=== PATIENT | male | born 1955 | race Caucasian/White ===

== ENCOUNTER 2017-02-18 20:12 | Emergency (ER) | payer OTHER ==
--- NOTE | 2017-02-18 21:10 | DIAGNOSTIC IMAGING REPORT ---
PROCEDURE: XR CHEST 1 VIEW INDICATION: CHEST PAIN TECHNIQUE: Portable AP view 08:31 p.m. COMPARISON: Chest x-ray 10/29/2009. FINDINGS: Lungs are clear. Heart and mediastinum are normal. Thorax is normal. No significant interval change. IMPRESSION: 1. Negative chest.
--- NOTE | 2017-02-19 01:18 | ED CLINICAL REPORT ---
Clinical Report - Physicians/Mid Levels [facility] [address] [place] [address] 02/18/2017 20:12 [id number] Time Seen: 21:01. Arrived- By private vehicle. Historian- patient. HISTORY OF PRESENT ILLNESS Chief Complaint: CHEST PAIN. When seen in the E.D., it was gone. It is described as sharp and it is described as located in the central chest area. No radiation. This started today and is now gone. It was abrupt in onset and has been intermittent. Onset during emotional upset. No nausea, vomiting or difficulty breathing. REVIEW OF SYSTEMS No chills, fever, sweats, calf pain or palpitations. No abdominal pain, constipation, diarrhea, nausea or vomiting. No urinary problems. He has had nasal congestion and sinus pain. He has had a moderate cough productive of sputum (recently - better now). He says that he had a stress test several years ago. All systems otherwise negative, except as recorded above. PAST HISTORY PCP - Richard. Problems: Hypertension. Diabetes Mellitus. Additional Surgeries: Urvashi tumor neck. Finger. Ganglion cyst. Knee Surgery. Tonsillectomy. Vasectomy. Medications: Trulicity Subcutaneous. Chlorthalidone Oral. Ambien Oral. Xigdou. ASA Oral 81mg, daily. Losartan Potassium Oral. Carvedilol Phosphate ER Oral. Allergies: No Known Drug Allergy. SOCIAL HISTORY Former smoker, end date 1986. Occasional alcohol use. No drug use. FAMILY HISTORY Diabetes in first-degree relative (mother and father); heart disease in first-degree relative (mother, father and sibling); cancer in first-degree relative (sibling). ADDITIONAL NOTES The nursing notes have been reviewed. PHYSICAL EXAM Vital Signs: 02/18/2017 20:14 BP: 143/84. HR: 83. RR: 16. O2 saturation: 95%. Temp: 98.1 F. Pain level now: 0/10. Have been reviewed. Appearance: Alert. Eyes: Pupils equal, round and reactive to light. ENT: Pharynx normal. Neck: Normal inspection. Neck supple. CVS: Normal heart rate and rhythm. Heart sounds normal. Respiratory: No respiratory distress. Breath sounds normal. Abdomen: Soft and nontender. Bowel sounds normal. No organomegaly. No mass. Back: Normal external inspection. Skin: Skin warm and dry. Normal skin color. No rash. Normal skin turgor. Extremities: Extremities exhibit normal ROM. No calf tenderness. No lower extremity edema. LABS, X-RAYS, AND EKG EKG: No acute process. Normal EKG. Rate: 79. EKG unchanged when compared with prior EKG. (29 Oct 2009). The study has been independently viewed by me. Chest X-ray: No acute disease. The X-rays were interpreted by the radiologist and contemporaneously by me. Laboratory Tests: CBC w Diff: (RENATA: 02/18/2017 20:30) ( MsgRcvd 02/18/2017 20:59) Final results Test Result Flag Units (Reference) WHITE BLOOD COUNT 7.6 K/uL (4.5-11.5) RED BLOOD COUNT 5.48 M/uL (4.50-5.90) HEMOGLOBIN 16.3 gm/dL (13.5-17.5) HEMATOCRIT 47.3 % (41.0-53.0) MEAN CELL VOLUME 86 fL (80-100) MEAN CORPUSCULAR HGB 30 pg (26-34) MEAN CORPUSCULAR HGB CONC 35 g/dL (31-37) RED CELL DISTRIBUTION WIDTH 13.9 % (11.6-14.8) PLATELET COUNT 310 K/uL (150-400) NEUTROPHIL % 55.1 % (50-75) LYMPH % 30.6 % (25-40) MONO % 10.4 % (3-14) EOSINOPHIL % 2.9 % (0-4) BASOPHIL % 1.0 % (0-2) [id number]: (RENATA: 02/18/2017 20:30) ( MsgRcvd 02/18/2017 22:01) Final results Test Result Flag Units (Reference) D-DIMER QUANTITATIVE < 0.27 L ug/mLFEU (0.27-0.52) The primary value of this quantitative assay relates toits negative predictive value (i.e. exclusion) of pulmonaryembolism/deep vein thrombosis/DIC.Elevated levels of d-dimer may also occur with:, age, cancer, inflammation, liver disease,post-op, infection, hematoma, coronary disease, peripheralarteriopathy, bleeding disorders and thrombolytic treatment.Results should be correlated with other clinical andradiological data.Testing Methodology: Latex Immunoassay PT with INR: (RENATA: 02/18/2017 20:30) ( MsgRcvd 02/18/2017 21:25) Final results Test Result Flag Units (Reference) INR 0.9 (0.8-1.2) Low Intensity Therapy: INR 1.5-2.0 PT range 18.5-23.1Mod.Intensity Therapy: INR 2.0-3.0 PT range 23.1-31.5High Intensity Therapy: INR 2.5-3.5 PT range 27.4-35.5High Intensity Therapy 2: INR 3.0-4.0 PT range 31.5-39.3 APTT 32 SECONDS (24-34) CHEM 13 PANEL: (RENATA: 02/18/2017 20:30) ( MsgRcvd 02/18/2017 21:08) Final results Test Result Flag Units (Reference) GLUCOSE 176 H mg/dL (70-110) BUN 13 mg/dL (7-18) CREATININE 1.0 mg/dL (0.6-1.3) Estimated GFR >60 mL/min Estimated GFR- >60 mL/min Note: Persistent reduction over 3 months in eGFR<60 mL/min/1.73 m2 defines CKD. Patients with eGFR values>=60 mL/min/1.73 m2 may also have CKD if evidence ofpersistent proteinuria. Additional information may be foundat [email or web address].org. SODIUM 137 mmol/L (136-145) POTASSIUM 2.8 *L mmol/L (3.5-5.1) CRITICAL RESULTS CALLEDCalled to Eugenio NGUYEN 02/18/17 2107Were 2 patient identifiers used? YWas the result read back? Y CHLORIDE 95 L mmol/L (98-107) CARBON DIOXIDE 29 mmol/L (21-32) CALCIUM 9.4 mg/dL (8.5-10.1) TOTAL PROTEIN 7.7 g/dL (6.4-8.2) ALBUMIN 4.0 g/dL (3.3-5.0) BILIRUBIN, TOTAL 0.7 mg/dL (0.0-1.0) ALKALINE PHOSPHATASE 75 U/L (46-116) AST (SGOT) 18 U/L (15-37) ALT (SGPT) 39 U/L (12-78) MAGNESIUM 1.9 mg/dL (1.8-2.4) CPK 205 U/L (24-260) TROPONIN I <0.05 L ng/mL (0.00-1.5) TROPONIN REFERENCE RANGE:<0.1 NEGATIVE0.1-1.5 INDETERMINANT>1.5 POSITIVE . PROGRESS AND PROCEDURES Course of Care: Patient is stable. Patient/family counseled. Old medical records ordered. Disposition: Discharged. Condition: stable. CLINICAL IMPRESSION Atypical chest pain Hypokalemia Possible gastroesophageal reflux disease with esophagitis. Possible chest pain of GI origin (due to esophageal reflux, hiatal hernia and esophagitis). INSTRUCTIONS No strenuous activity. Rest. Avoid alcohol and NSAIDS. Examples of NSAIDS include aspirin, ibuprofen (Advil) and naproxen (Aleve). Avoid salty and spicy foods. (talk with her doctor today about arranging another cardiac stress test, echocardiogram and consideration of endoscopy as discussed.). Warnings: Further evaluation is necessary. GENERAL WARNINGS: Return or contact your physician immediately if your condition worsens or changes unexpectedly, if not improving as expected, or if other problems arise. Your Current Medications: STOP TAKING THE FOLLOWING MEDICATIONS: Chlorthalidone Oral. CONTINUE TAKING THE FOLLOWING MEDICATIONS: Ambien Oral. ASA Oral : 81mg daily. Carvedilol Phosphate ER Oral. Losartan Potassium Oral. Trulicity Subcutaneous. Xigdou*. Prescription Medications: Omeprazole 20 mg capsules: Take 1 orally once daily. Dispense fifteen (15). No refills. Potassium Chloride 10 mEq: Take 1 orally every 12 hours. Dispense thirty (30). No refills. Follow-up: Follow up with a soldering machine feeder- as recommended by your primary care physician. Understanding of the discharge instructions verbalized by patient and family. Follow-up with: [facility], , [address] [place] [address], [id number], [place], [address] Follow up today. Call for an appointment. (Electronically signed by Aristides Campbell MD 02/22/2017 11:06)
--- NOTE | 2017-02-19 01:18 | ED CLINICAL REPORT ---
Clinical Report - Physicians/Mid Levels [facility] [address] [place] [address] 02/18/2017 20:12 [id number] Time Seen: 21:01. Arrived- By private vehicle. Historian- patient. HISTORY OF PRESENT ILLNESS Chief Complaint: CHEST PAIN. When seen in the E.D., it was gone. It is described as sharp and it is described as located in the central chest area. No radiation. This started today and is now gone. It was abrupt in onset and has been intermittent. Onset during emotional upset. No nausea, vomiting or difficulty breathing. REVIEW OF SYSTEMS No chills, fever, sweats, calf pain or palpitations. No abdominal pain, constipation, diarrhea, nausea or vomiting. No urinary problems. He has had nasal congestion and sinus pain. He has had a moderate cough productive of sputum (recently - better now). He says that he had a stress test several years ago. All systems otherwise negative, except as recorded above. PAST HISTORY PCP - Richard. Problems: Hypertension. Diabetes Mellitus. Additional Surgeries: Urvashi tumor neck. Finger. Ganglion cyst. Knee Surgery. Tonsillectomy. Vasectomy. Medications: Trulicity Subcutaneous. Chlorthalidone Oral. Ambien Oral. Xigdou. ASA Oral 81mg, daily. Losartan Potassium Oral. Carvedilol Phosphate ER Oral. Allergies: No Known Drug Allergy. SOCIAL HISTORY Former smoker, end date 1986. Occasional alcohol use. No drug use. FAMILY HISTORY Diabetes in first-degree relative (mother and father); heart disease in first-degree relative (mother, father and sibling); cancer in first-degree relative (sibling). ADDITIONAL NOTES The nursing notes have been reviewed. PHYSICAL EXAM Vital Signs: 02/18/2017 20:14 BP: 143/84. HR: 83. RR: 16. O2 saturation: 95%. Temp: 98.1 F. Pain level now: 0/10. Have been reviewed. Appearance: Alert. Eyes: Pupils equal, round and reactive to light. ENT: Pharynx normal. Neck: Normal inspection. Neck supple. CVS: Normal heart rate and rhythm. Heart sounds normal. Respiratory: No respiratory distress. Breath sounds normal. Abdomen: Soft and nontender. Bowel sounds normal. No organomegaly. No mass. Back: Normal external inspection. Skin: Skin warm and dry. Normal skin color. No rash. Normal skin turgor. Extremities: Extremities exhibit normal ROM. No calf tenderness. No lower extremity edema. LABS, X-RAYS, AND EKG EKG: No acute process. Normal EKG. Rate: 79. EKG unchanged when compared with prior EKG. (29 Oct 2009). The study has been independently viewed by me. Chest X-ray: No acute disease. The X-rays were interpreted by the radiologist and contemporaneously by me. Laboratory Tests: CBC w Diff: (RENATA: 02/18/2017 20:30) ( MsgRcvd 02/18/2017 20:59) Final results Test Result Flag Units (Reference) WHITE BLOOD COUNT 7.6 K/uL (4.5-11.5) RED BLOOD COUNT 5.48 M/uL (4.50-5.90) HEMOGLOBIN 16.3 gm/dL (13.5-17.5) HEMATOCRIT 47.3 % (41.0-53.0) MEAN CELL VOLUME 86 fL (80-100) MEAN CORPUSCULAR HGB 30 pg (26-34) MEAN CORPUSCULAR HGB CONC 35 g/dL (31-37) RED CELL DISTRIBUTION WIDTH 13.9 % (11.6-14.8) PLATELET COUNT 310 K/uL (150-400) NEUTROPHIL % 55.1 % (50-75) LYMPH % 30.6 % (25-40) MONO % 10.4 % (3-14) EOSINOPHIL % 2.9 % (0-4) BASOPHIL % 1.0 % (0-2) [id number]: (RENATA: 02/18/2017 20:30) ( MsgRcvd 02/18/2017 22:01) Final results Test Result Flag Units (Reference) D-DIMER QUANTITATIVE < 0.27 L ug/mLFEU (0.27-0.52) The primary value of this quantitative assay relates toits negative predictive value (i.e. exclusion) of pulmonaryembolism/deep vein thrombosis/DIC.Elevated levels of d-dimer may also occur with:, age, cancer, inflammation, liver disease,post-op, infection, hematoma, coronary disease, peripheralarteriopathy, bleeding disorders and thrombolytic treatment.Results should be correlated with other clinical andradiological data.Testing Methodology: Latex Immunoassay PT with INR: (RENATA: 02/18/2017 20:30) ( MsgRcvd 02/18/2017 21:25) Final results Test Result Flag Units (Reference) INR 0.9 (0.8-1.2) Low Intensity Therapy: INR 1.5-2.0 PT range 18.5-23.1Mod.Intensity Therapy: INR 2.0-3.0 PT range 23.1-31.5High Intensity Therapy: INR 2.5-3.5 PT range 27.4-35.5High Intensity Therapy 2: INR 3.0-4.0 PT range 31.5-39.3 APTT 32 SECONDS (24-34) CHEM 13 PANEL: (RENATA: 02/18/2017 20:30) ( MsgRcvd 02/18/2017 21:08) Final results Test Result Flag Units (Reference) GLUCOSE 176 H mg/dL (70-110) BUN 13 mg/dL (7-18) CREATININE 1.0 mg/dL (0.6-1.3) Estimated GFR >60 mL/min Estimated GFR- >60 mL/min Note: Persistent reduction over 3 months in eGFR<60 mL/min/1.73 m2 defines CKD. Patients with eGFR values>=60 mL/min/1.73 m2 may also have CKD if evidence ofpersistent proteinuria. Additional information may be foundat www.kidney.org. SODIUM 137 mmol/L (136-145) POTASSIUM 2.8 *L mmol/L (3.5-5.1) CRITICAL RESULTS CALLEDCalled to Eugenio NGUYEN 02/18/17 2107Were 2 patient identifiers used? YWas the result read back? Y CHLORIDE 95 L mmol/L (98-107) CARBON DIOXIDE 29 mmol/L (21-32) CALCIUM 9.4 mg/dL (8.5-10.1) TOTAL PROTEIN 7.7 g/dL (6.4-8.2) ALBUMIN 4.0 g/dL (3.3-5.0) BILIRUBIN, TOTAL 0.7 mg/dL (0.0-1.0) ALKALINE PHOSPHATASE 75 U/L (46-116) AST (SGOT) 18 U/L (15-37) ALT (SGPT) 39 U/L (12-78) MAGNESIUM 1.9 mg/dL (1.8-2.4) CPK 205 U/L (24-260) TROPONIN I <0.05 L ng/mL (0.00-1.5) TROPONIN REFERENCE RANGE:<0.1 NEGATIVE0.1-1.5 INDETERMINANT>1.5 POSITIVE . PROGRESS AND PROCEDURES Course of Care: Patient is stable. Patient/family counseled. Old medical records ordered. Disposition: Discharged. Condition: stable. CLINICAL IMPRESSION Atypical chest pain Hypokalemia Possible gastroesophageal reflux disease with esophagitis. Possible chest pain of GI origin (due to esophageal reflux, hiatal hernia and esophagitis). INSTRUCTIONS No strenuous activity. Rest. Avoid alcohol and NSAIDS. Examples of NSAIDS include aspirin, ibuprofen (Advil) and naproxen (Aleve). Avoid salty and spicy foods. (talk with her doctor today about arranging another cardiac stress test, echocardiogram and consideration of endoscopy as discussed.). Warnings: Further evaluation is necessary. GENERAL WARNINGS: Return or contact your physician immediately if your condition worsens or changes unexpectedly, if not improving as expected, or if other problems arise. Your Current Medications: STOP TAKING THE FOLLOWING MEDICATIONS: Chlorthalidone Oral. CONTINUE TAKING THE FOLLOWING MEDICATIONS: Ambien Oral. ASA Oral : 81mg daily. Carvedilol Phosphate ER Oral. Losartan Potassium Oral. Trulicity Subcutaneous. Xigdou*. Prescription Medications: Omeprazole 20 mg capsules: Take 1 orally once daily. Dispense fifteen (15). No refills. Potassium Chloride 10 mEq: Take 1 orally every 12 hours. Dispense thirty (30). No refills. Follow-up: Follow up with a cell manager- as recommended by your primary care physician. Understanding of the discharge instructions verbalized by patient and family. Follow-up with: [facility], , [address] [place] [address], [id number], [place], [address] Follow up today. Call for an appointment. (Electronically signed by Arsitides Campbell MD 02/22/2017 11:06)
--- NOTE | 2017-02-19 01:19 | ED NURSING NOTES ---
Clinical Report - Nurses [facility] [address] [place] [address] 02/18/2017 20:12 [id number] Triage time 20:14. Acuity: LEVEL 2. Chief Complaint: CHEST PAIN. Alert. No acute distress. --20:22 Miladis Ng R.N. 20:14 02/18/17. BP: 143/84. HR: 83. RR: 16. O2 saturation: 95% on room air. Temp: 98.1 F (oral). Pain level now: 0/10. --20:22 Miladis Ng R.N. Weight: 100.6 kg stated. Height/Length: 70.5 inches Per Patient. BMI: 31.4. --20:21 Miladis Ng R.N. Medications Carvedilol Phosphate ER Oral. --20:16 Miladis Ng R.N. Losartan Potassium Oral. --20:17 Miladis Ng R.N. ASA Oral 81mg, daily. --20:18 Miladis Ng R.N. Allergies No Known Drug Allergy. --20:18 Miladis Ng R.N. History Arrived by private vehicle. Historian: patient. Primary physician (Dejah). This started today. Onset. (at about 1300). No difficulty breathing, nausea or cough. PAST MEDICAL HX: Immunizations: up-to-date. SOCIAL HX: Never smoker. Occasional alcohol use. No drug use. --20:22 Miladis Ng R.N. PROBLEMS: Hypertension. Diabetes Mellitus. --20:19 Miladis Ng R.N. ADDITIONAL SURGERIES: Finger. Knee Surgery. Tonsillectomy. Vasectomy. --20:19 Miladis Ng R.N. Urvashi tumor neck. Ganglion cyst. --20:20 Miladis Ng R.N. Interventions ID band on patient. To treatment room. --20:22 Miladis Ng R.N. PHYSICAL ASSESSMENT Ambulatory to room. Patient gowned. GENERAL / NEURO / PSYCH: Alert. Oriented X 4. Appears in no acute distress. HEENT: Mucous membranes are pink. RESPIRATORY: Respirations not labored. CVS: Capillary refill less than 2 seconds. SKIN: Skin is warm and dry. --20:22 Miladis Ng R.N. NURSING PROGRESS NOTES Head of bed elevated. Two patient identifiers checked. Call light placed in reach. Side rails up x 1. Bed placed in lowest position. Brakes of bed on. --20:22 Miladis Ng R.N. Patient ready for evaluation- chart flagged. --20:22 Miladis Ng R.N. 20:32 02/18/2017 Site #1 started via IV in the right antecubital space with an 20g angiocath, with aseptic technique and good blood return; one attempt. Blood drawn: rainbow set. Labeled in the presence of the patient and sent to the lab. Saline lock flushed with 10 mL saline. --20:32 Miladis Ng R.N. school bus monitor, pulse oximeter and NIBP monitor placed on patient; monitor alarms on. --20:32 Miladis Ng R.N. 20:42 02/18/2017 Aspirin PO 325 mg given. Allergies verified and confirmed 5 rights. --20:42 Sharyn Duke R.N. 21:08 02/18/17. Critical value relayed to ED by Fariba Krishnan. Critical value received by TORRI Coles. K: 2.8. Critical value read back. Verified lab result and patient ID. ED physician notifed of critical value. --21:08 Sharyn Duke R.N. 21:20 02/18/2017 Started 20 meq of KCL (Potassium Chloride) IVPB in bag #1 100 mL; at 50 mL/hr over 2 hour(s) via site #1 via IV pump. Allergies verified and confirmed 5 rights. IV patency established. IV site checked: no pain, redness, or swelling. IV flushed thoroughly pre- and post-medication administration. --21:20 Sharyn Duke R.N. 21:20 02/18/2017 KCL (Potassium Chloride ER) PO 20 meq given. Allergies verified and confirmed 5 rights. --21:20 Sharyn Duke R.N. 21:35 02/18/17. BP: 114/74. HR: 78. RR: 18. O2 saturation: 99% on nasal cannula at 2 liters/minute. --21:36 Sharyn Duke R.N. Care transferred and report received (from Sharyn RN). --22:10 Patrick Da Silva R.N. 23:27 02/18/2017 GI Cocktail (Magnesium-Aluminum) PO 60 mL given. Allergies verified and confirmed 5 rights. --23:27 Eugenio Eason 23:28 02/18/2017 PROTONIX 40MG (Pantoprazole Sodium) IVP 40 mg given over 4 minute(s) via site #1. Allergies verified and confirmed 5 rights. IV patency established. IV site checked: no pain, redness, or swelling. IV flushed thoroughly pre- and post-medication administration. IVP given by RN. --23:28 Eugenio Eason ( pt took his home medications after getting OK from ER ). --23:35 Eugenio Eason Checked patient name, birthdate and visit number: patient confirmed. Blood samples drawn from the right antecubital space with 23g butterfly by tech per protocol: green top; cardiac enzymes (2nd set). --23:47 Darryl Mejia 23:56 02/18/17. BP: 126/81. HR: 84. RR: 16. O2 saturation: 96%. Temp: deferred. Pain level now: 12/19. --23:58 Eugenio Eason Reassessment after medication administered. He is calm and resting quietly. Overall patient status is improved. --23:58 Eugenio Eason <<STRICKEN ENTRY-- ( Breathalizer performed POLLY .252). --23:58 Darryl Mejia --END STRIKE>> Charted On Wrong Patient --23:59 Darryl Mejia. DISPOSITION / DISCHARGE 01:50 02/19/2017 Site #1 removed upon discharge. Catheter intact. Bandaid applied. --01:50 TonyaB, R.N. Departure time: 01:50. Condition at departure: improved. No learning barriers present. Discharge instructions provided and reviewed with the patient. Reviewed warnings. Reviewed medication(s) side effects, precautions, dosing and course information. Prescription(s) given to the patient. Work note given. Follow up contact number. Patient verbalized understanding. Written instructions provided in Korean. No treatment instructions, referrals given to the patient, diet instructions, activity restrictions or stop smoking instructions. The patient was discharged by the physician. He was discharged home and accompanied by spouse. He left the Emergency Department ambulatory and via private vehicle. Spouse driving. FALL RISK ASSESSMENT: Fall risk assessment completed. No fall risk identified. --01:50 Eugenio Eason 01:48 02/19/17. BP: 125/82. HR: 74. RR: 18. O2 saturation: 98%. Temp: deferred. Pain level now: 0/10. --01:50 Eugenio Eason Locked/Released at 02/19/2017 1:50 by Eugenio Eason
--- NOTE | 2017-02-19 01:19 | ED ORDER SUMMARY ---
..... Patient: ALFREDA ESTES OrderSheet [facility] VisitID: [id number] [address] [place] [address] 61y, M Registration Date/Time: 02/18/2017 ORDER SHEET Weight: 100.6 kg (stated) Allergies: No Known Drug Allergy GENERAL ORDERS: Chest 1V Urgent (20:36 02/18/2017 RCollier R.N. per protocol) (Ack 20:40 AMcQuoid ER Tech1) (20:44 MWinterer R.N.) Gum Remover (Continuous) (CP) (20:37 02/18/2017 RCollier R.N. per protocol) (20:38 RCollier R.N.) UA-Culture if indicated Urgent (20:38 02/18/2017 RCollier R.N. per protocol) (Ack 20:40 AMcQuoid ER Tech1) (23:20 TBowen R.N.) Cardiac Panel Stat (20:38 02/18/2017 RCollier R.N. per protocol) (Ack 20:40 AMcQuoid ER Tech1) (20:42 AMcQuoid ER Tech1) Oxygen (2 L/min) (NC) (20:38 02/18/2017 RCollier R.N. per protocol) (20:42 MWinterer R.N.) Pulse oximeter (20:38 02/18/2017 RCollier R.N. per protocol) (20:38 RCollier R.N.) EKG - ER Stat (20:38 02/18/2017 RCollier R.N. per protocol) (20:38 RCollier R.N.) PT with INR Urgent (21:08 02/18/2017 Judson QUINN) (21:09 AMcQuoid ER Tech1) PTT Urgent (21:08 02/18/2017 Judson QUINN) (21:09 AMcQuoid ER Tech1) D-Dimer Urgent (21:39 02/18/2017 Judson QUINN) (Ack 21:44 SRedmond) (21:58 MWinterer R.N.) CPK Urgent (23:11 02/18/2017 Judson QUINN) (Ack 23:12 AMcQuoid ER Tech1) (1:16 SRedmond) Troponin-I Urgent (23:11 02/18/2017 Judson QUINN) (Ack 23:12 AMcQuoid ER Tech1) (1:16 SRedmond) MEDICATION ORDERS: Aspirin PO 325 mg (NOW) (20:37 02/18/2017 RCollier R.N. per protocol) (20:42 MWinterer R.N.) KCl PO 20 meq (NOW) (21:10 02/18/2017 Judson QUINN) (Ack 21:12 MWinterer R.N.) (21:20 MWinterer R.N.) GI Cocktail WHITE PO 30 mL with Lidocaine Viscous Mouth/Throat 15 mL, Maalox Plus Oral 15 mL (23:08 02/18/2017 Judson QUINN) (23:27 TBowen R.N.) IV FLUIDS: IV Saline Lock (20:38 02/18/2017 RAFYollier R.N. per protocol) (20:40 MWinterer R.N.) KCl IV 20 meq/100mL (NOW, Run no faster than 10 mEq/hr) (21:10 02/18/2017 Judson QUINN) (Ack 21:12 MWinterer R.N.) (21:20 MWinterer R.N.) Protonix IVP 40mg 40 mg (Mix in NS 10ml over 2min) (23:09 02/18/2017 Judson QUINN) (23:28 TBowen R.N.) ORDER SHEET NOTES: [Electronically signed by Desire Tran R.N. (01:50 02/19/2017)] [Electronically signed by Aristides Campbell MD (11:06 02/22/2017)] [Electronically locked/signed by Desire Tran R.N. (01:50 02/19/2017)]
--- NOTE | 2017-02-19 01:19 | ED ORDER SUMMARY ---
..... Patient: ALFREDA ESTES OrderSheet [facility] VisitID: [id number] [address] [place] [address] 61y, M Registration Date/Time: 02/18/2017 ORDER SHEET Weight: 100.6 kg (stated) Allergies: No Known Drug Allergy GENERAL ORDERS: Chest 1V Urgent (20:36 02/18/2017 RCollier R.N. per protocol) (Ack 20:40 AMcQuoid ER Tech1) (20:44 MWinterer R.N.) Loom Mechanic (Continuous) (CP) (20:37 02/18/2017 RCollier R.N. per protocol) (20:38 RCollier R.N.) UA-Culture if indicated Urgent (20:38 02/18/2017 RCollier R.N. per protocol) (Ack 20:40 AMcQuoid ER Tech1) (23:20 TBowen R.N.) Cardiac Panel Stat (20:38 02/18/2017 RCollier R.N. per protocol) (Ack 20:40 AMcQuoid ER Tech1) (20:42 AMcQuoid ER Tech1) Oxygen (2 L/min) (NC) (20:38 02/18/2017 RCollier R.N. per protocol) (20:42 MWinterer R.N.) Pulse oximeter (20:38 02/18/2017 RCollier R.N. per protocol) (20:38 RCollier R.N.) EKG - ER Stat (20:38 02/18/2017 RCollier R.N. per protocol) (20:38 RCollier R.N.) PT with INR Urgent (21:08 02/18/2017 Judson QUINN) (21:09 AMcQuoid ER Tech1) PTT Urgent (21:08 02/18/2017 Judson QUINN) (21:09 AMcQuoid ER Tech1) D-Dimer Urgent (21:39 02/18/2017 Judson QUINN) (Ack 21:44 SRedmond) (21:58 MWinterer R.N.) CPK Urgent (23:11 02/18/2017 Judson QUINN) (Ack 23:12 AMcQuoid ER Tech1) (1:16 SRedmond) Troponin-I Urgent (23:11 02/18/2017 Judson QUINN) (Ack 23:12 AMcQuoid ER Tech1) (1:16 SRedmond) MEDICATION ORDERS: Aspirin PO 325 mg (NOW) (20:37 02/18/2017 RCollier R.N. per protocol) (20:42 MWinterer R.N.) KCl PO 20 meq (NOW) (21:10 02/18/2017 Judson QUINN) (Ack 21:12 MWinterer R.N.) (21:20 MWinterer R.N.) GI Cocktail WHITE PO 30 mL with Lidocaine Viscous Mouth/Throat 15 mL, Maalox Plus Oral 15 mL (23:08 02/18/2017 Judson QUINN) (23:27 TBowen R.N.) IV FLUIDS: IV Saline Lock (20:38 02/18/2017 RAFYollier R.N. per protocol) (20:40 MWinterer R.N.) KCl IV 20 meq/100mL (NOW, Run no faster than 10 mEq/hr) (21:10 02/18/2017 Judson QUINN) (Ack 21:12 MWinterer R.N.) (21:20 MWinterer R.N.) Protonix IVP 40mg 40 mg (Mix in NS 10ml over 2min) (23:09 02/18/2017 Judson QUINN) (23:28 TBowen R.N.) ORDER SHEET NOTES: [Electronically signed by Desire Tran R.N. (01:50 02/19/2017)] [Electronically signed by Aristides Campbell MD (11:06 02/22/2017)] [Electronically locked/signed by Desire Tran R.N. (01:50 02/19/2017)]
--- NOTE | 2017-02-22 11:06 | ED DISCHARGE INSTRUCTIONS ---
Patient: ALFREDA ESTES General Instructions [facility] VisitID: [id number] [address] [place] [id number] 61y, M Registration Date/Time: 02/18/2017 Atypical chest pain Hypokalemia INSTRUCTIONS No strenuous activity. Rest. Avoid alcohol and NSAIDS. Examples of NSAIDS include aspirin, ibuprofen (Advil) and naproxen (Aleve). Avoid salty and spicy foods. (talk with her doctor today about arranging another cardiac stress test, echocardiogram and consideration of endoscopy as discussed.). Warnings: Further evaluation is necessary. GENERAL WARNINGS: Return or contact your physician immediately if your condition worsens or changes unexpectedly, if not improving as expected, or if other problems arise. Your Current Medications: STOP TAKING THE FOLLOWING MEDICATIONS: Chlorthalidone Oral. CONTINUE TAKING THE FOLLOWING MEDICATIONS: Ambien Oral. ASA Oral : 81mg daily. Carvedilol Phosphate ER Oral. Losartan Potassium Oral. Trulicity Subcutaneous. Xigdou*. Prescription Medications: Omeprazole 20 mg capsules: Take 1 orally once daily. Dispense fifteen (15). No refills. Potassium Chloride 10 mEq: Take 1 orally every 12 hours. Dispense thirty (30). No refills. Follow-up: Follow up with a store clerk cashier- as recommended by your primary care physician. Understanding of the discharge instructions verbalized by patient and family. Follow-up with: [facility], [facility], , [address] [place] [address], [address], [place] [id number] Follow up today. Call for an appointment. ADDITIONAL INFORMATION Chest Pain, Uncertain Cause Chest pain can happen for a number of reasons. Sometimes the cause can not be determined. If yourcondition does not seem serious, and your pain does not appear to be coming from your heart, your doctor may recommend watching it closely. Sometimes the signs of a serious problem take more time to appear. Therefore, watch for the warning signs listed below. Home care After your visit, follow these recommendations: Rest today and avoid strenuous activity. Take any prescribed medicine as directed. Follow-up care Follow up with your doctor or this facility as instructed or if you do not start to feel better within 24 hours. Call 911 Get immediate medical attention if any of the following occur: A change in the type of pain: if it feels different, becomes more severe, lasts longer, or begins to spread into your shoulder, arm, neck, jaw or back Shortness of breath or increased pain with breathing Weakness, dizziness, or fainting Rapid heart beat Get prompt medical attention Call your doctor right away if any of the following occur: Cough with dark colored sputum (phlegm) or blood Fever of 100.4F(38C) or higher, or as directed by your health care provider Swelling, pain or redness in one leg GERD (Adult) The esophagus is a tube that carries food from the mouth to the stomach. A valve at the lower end of the esophagus prevents stomach acid from flowing upward. If this valve does not work properly, acid from the stomach enters the esophagus. If this occurs over and over, the acid will injure the lining of the esophagus. This condition is called GERD (gastroesophageal reflux disease) or acid reflux. When stomach acid flows upward into the esophagus, it causes burning, pressure or sharp pain in the upper abdomen or mid to lower chest. The pain can spread to the neck, back, or shoulder, similar to heart pain (angina). There may be belching, an acid taste in the back of the throat, chronic cough, or sore throat or hoarseness. GERD symptoms often occur during the day after a big meal, but it can also occur at night when lying down. Smoking,as well as drinking alcohol, increases the risk of GERD. GERD is a chronic condition. Once it begins, it is often lifelong. Treatment includes changes in eating habits and the use of acid rosendo medications to decrease the amount of acid in the stomach. Symptoms often improve with treatment, but if treatment is stopped, the symptoms usually return after a few months. So most persons with GERD will need to continue treatment. Home Care: Take the prescribed acid rosendo medication for the full course of treatment even if you begin to feel better sooner. This medication can take up to several days to fully control your symptoms. If you cant afford the prescribed medication, you can try [id number] acid blockers, such as Pepcid AC, Tagamet, Zantac, or Aciphex. If these do not relieve your symptoms, a stronger acid-rosendo can be tried, such as Prilosec OTC. You can use antacids, such as Tums, Rolaids, Mylanta, or Maalox, for pain. This will be useful the first few days after starting acid blockers when the blockers havent started working yet. Follow the directions on the label. Liquid antacids may work better than tablets. Note that antacids can interfere with absorption of certain medications. Specifically, do not take Tagamet (cimetidine), Zantac (ranitidine), or Carafate (sucralfate) within 1 hour of taking an antacid. Talk with your pharmacist if you have any questions. Limit or avoid fatty, fried, and spicy foods, as well as coffee, chocolate, mint, and foods with high acid content such as tomatoes and citrus fruit and juices (orange, grapefruit, lemon). Avoid alcohol and smoking. Dont eat large meals, especially at night. Frequent, smaller meals are best. Do not lie down right after eating. And dont eat anything 3 hours before going to bed. If you are overweight, losing weight will reduce symptoms. Women should not wear corsets or girdles because this increases pressure on the stomach and worsens reflux. If your symptoms occur during sleep, use a foam wedge to elevate your upper body (not just your head.) Or, place 4" blocks under the head of your bed. Follow Up with your doctor or as advised by our staff. Further testing may be needed. If you do not begin to improve over the next 4 days, contact your doctor. If you had an x-ray, CT scan, or ECG (electrocardiogram), it will be reviewed by a specialist. Youll be notified of any new findings that affect your care. Get Prompt Medical Attention if any of the following occur: Stomach pain gets worse or moves to the lower right abdomen (appendix area) Chest pain appears or gets worse, or spreads to the back, neck, shoulder, or arm Frequent vomiting (cant keep down liquids) Blood in the stool or vomit (red or black in color) Feeling weak or dizzy, fainting, or trouble breathing Fever of 100.4F (38C) or higher, or as directed by your healthcare provider Esophageal Spasm The esophagus is a muscular tube that joins your mouth to your stomach. Normal waves of contraction help food move down the esophagus to reach the stomach. Esophageal spasms are abnormal contractions of these muscles. When the muscles are in spasm it may feel like the food is stuck and wont go down. It may cause a feeling of heartburn or a squeezing type of chest pain that can feel just like heart pain (angina). The pain may spread to the neck, arm or back. If you try to swallow more food or liquid during a spasm, it may come back up within seconds. The cause of esophageal spasm is not known but it is more common in people with acid reflux disease (also called "GERD" or "Esophagitis"). Very hot or very cold foods or foods that are not chewed enough before swallowing may trigger an episode. Special tests may be ordered to confirm the diagnosis if there is doubt. Medicine is used to prevent or treat symptoms in most cases. Severe symptoms can be treated with surgery. Home Care: If you are prone to acid reflux and heartburn symptoms, your doctor may prescribe acid-blocking medicine. If not, you can use over the counter medicines as a preventive if you get symptoms often. The following medicines are available without a prescription: Antacids: Neutralize stomach acid. (such as Gaviscon, Mylanta, Tums or Rolaids) Acid-Blockers: Reduce the production of acid in the stomach. (Axid, Pepcid-AC, Tagamet-HB, Zantac, Prilosec-OTC). Learn to recognize if certain foods are causing your spasm and avoid these. Avoid very hot and very cold foods if this is a trigger for you. Eat slowly and chew food well before swallowing. Follow Up with your doctor or as advised by our staff. Get Prompt Medical Attention if any of the following occur: Chest pain or pain in the neck, back, shoulder or arm that does not respond to the treatment recommended Food that feels "stuck" in the esophagus for more than 30 minutes Inability to swallow solid or liquids for more than 30 minutes Symptoms that feel like esophageal spasm but occur with heavy sweating, dizziness, fainting or shortness of breath Change in the usual patterns of your symptoms of esophageal spasm (new pattern of spreading to the neck, back, shoulder or arm; pain that is more severe than usual) Hypokalemia Hypokalemia means a low level of potassium in the blood. This most often occurs in patients who take diuretics (water pills). It can also occur due to severe vomiting or diarrhea. A mild case usually causes no symptoms. It is only found with blood testing. More severe potassium loss causes generalized weakness, muscle or abdominal cramping, heart palpitations (rapid or irregular heartbeats) and low blood pressure. Home Care: 1) Take any potassium supplements prescribed. 2) Eat foods rich in potassium. The highest amount is found in artichoke, baked potatoes, spinach, cantaloupe, honeydew melon, cod, halibut, salmon, and scallops. White, red, or taylor beans are also very good sources. A modest amount is found in orange juice, bananas, carrots, and tomato juice. 3) Certain types of diuretics (water pills), such as Lasix (furosemide), require that you take potassium supplements for as long as you take the diuretic pills. If you are taking a diuretic, discuss the need for potassium supplements with your doctor. Follow Up with your doctor for a repeat blood test within the next week or as advised by our staff. Get Prompt Medical Attention if any of the following occur: -- Increased weakness -- Feeling dizzy -- Irregular heartbeat, extra beats or very fast heart rate -- Fainting spell [place] Diet A bland diet is used for patients with an upset stomach. It consists of foods that are mild and easy to digest. It is better to eat small frequent meals rather than three large meals a day. BEVERAGES OK: Fruit juices, non-caffeinated teas and coffee, non-carbonated molina AVOID: Carbonated beverage, caffeinated tea and coffee, all alcoholic beverages BREAD OK: Refined white, wheat or rye bread, charlie or soda crackers, Sharri toast, plain rolls, bagels AVOID: Whole-grain bread CEREAL OK: Refined cereals: cooked or ready to eat AVOID: Whole grain cereals and granola, or those containing bran, seeds or nuts DESSERTS OK: Peanut butter and all others except those to "avoid" AVOID: Chocolate, cocoa, coconut, popcorn, nuts, seeds, jam, marmalade FRUITS OK: Canned, cooked, frozen or fresh fruits without seeds or tough skin AVOID: Olives, skin and seeds of fruit MEATS OK: All fresh or preserved meat, fish and fowl AVOID: Any that are prepared with those spices to "avoid" CHEESE & EGGS OK: Eggs, cottage cheese, cream cheese, other cheeses AVOID: All cheeses made with those spices to "avoid" POTATOES & PASTA OK: Potato, rice, macaroni, noodles, spaghetti AVOID: None SOUPS OK: All soups without heavy seasoning AVOID: Soups made with those spices to "avoid" VEGETABLES OK: Canned, cooked, fresh or frozen mildly flavored vegetables without seeds, skins or coarse fiber AVOID: Vegetables prepared with those spices to "avoid"; skin and seeds of vegetables and those with coarse fiber SPICES OK: Salt, lemon and [place] lake juice, vinegar, all extracts, jone, cinnamon, thyme, mace, allspice, paprika AVOID: [place] powder, cloves, pepper, seed spices, garlic, gravy pickles, highly seasoned salad dressings Omeprazole Magnesium Gastro-resistant tablet What is this medicine? OMEPRAZOLE (oh ME pray zol) prevents the production of acid in the stomach. It is used to treat the symptoms of heartburn. You can buy this medicine without a prescription. This product is not for long-term use, unless otherwise directed by your doctor or health career technical education teacher. How should I use this medicine? Take this medicine by mouth. Follow the directions on the product label. If you are taking this medicine without a prescription, take one tablet every day. Do not use for longer than 14 days or repeat a course of treatment more often than every 4 months unless directed by a doctor or healthcare professional. Take your dose at regular intervals every 24 hours. Swallow the tablet whole with a drink of water. Do not crush, break or chew. This medicine works best if taken on an empty stomach 30 minutes before breakfast. If you are using this medicine with the prescription of your doctor or healthcare professional, follow the directions you were given. Do not take your medicine more often than directed. Talk to your topography technician regarding the use of this medicine in children. Special care may be needed. What side effects may I notice from receiving this medicine? Side effects that you should report to your doctor or health career technical education teacher as soon as possible: allergic reactions like skin rash, itching or hives, swelling of the face, lips, or tongue bone, muscle or joint pain breathing problems chest pain or chest tightness dark yellow or brown urine diarrhea dizziness fast, irregular heartbeat feeling faint or lightheaded fever or sore throat muscle spasm palpitations redness, blistering, peeling or loosening of the skin, including inside the mouth seizures tremors unusual bleeding or bruising unusually weak or tired yellowing of the eyes or skin Side effects that usually do not require medical attention (Report these to your doctor or health career technical education teacher if they continue or are bothersome.): constipation dry mouth headache loose stools nausea What may interact with this medicine? Do not take this medicine with any of the following medications: atazanavir clopidogrel nelfinavir This medicine may also interact with the following medications: ampicillin certain medicines for anxiety or sleep certain medicines that treat or prevent blood clots like warfarin cyclosporine diazepam digoxin disulfiram iron salts phenytoin prescription medicine for fungal or yeast infection like itraconazole, ketoconazole, voriconazole saquinavir tacrolimus What if I miss a dose? If you miss a dose, take it as soon as you can. If it is almost time for your next dose, take only that dose. Do not take double or extra doses. Where should I keep my medicine? Keep out of the reach of children. Store at room temperature between 20 and 25 degrees C (68 and 77 degrees F). Protect from light and moisture. Throw away any unused medicine after the expiration date. What should I tell my health care provider before I take this medicine? They need to know if you have any of these conditions: black or bloody stools chest pain difficulty swallowing have had heartburn for over 3 months have heartburn with dizziness, lightheadedness or sweating liver disease stomach pain unexplained weight loss vomiting with blood wheezing an unusual or allergic reaction to omeprazole, other medicines, foods, dyes, or preservatives or trying to get breast-feeding What should I watch for while using this medicine? It can take several days before your heartburn gets better. Check with your doctor or health career technical education teacher if your condition does not start to get better, or if it gets worse. Do not treat diarrhea with over the counter products. Contact your doctor if you have diarrhea that lasts more than 2 days or if it is severe and watery. Do not treat yourself for heartburn with this medicine for more than 14 days in a row. You should only use this medicine for a 2-week treatment period once every 4 months. If your symptoms return shortly after your therapy is complete, or within the 4 month time frame, call your doctor or health career technical education teacher. You have been given the following additional information: Chest Pain, Uncertain Cause GERD (Adult) Esophageal Spasm Hypokalemia Diet, [place] (Adult) Omeprazole Magnesium Gastro-resistant tablet No strenuous activity. Rest. (Electronically signed by Aristides Campbell MD 02/22/2017 11:06)
--- NOTE | 2017-02-22 11:07 | ED MED RECONCILIATION SUMMARY ---
Patient: ALFREDA ESTES Medication Reconciliation Report [facility] VisitID: [id number] [address] [place] [address] 61y, M Registration Date/Time: 02/18/2017 Weight: 100.6 kg Height/Length: 60 in. BMI: 31.4 ALLERGIES: No Known Drug Allergy The patient's Home Medications are listed below: STOP TAKING THE FOLLOWING MEDICATIONS: Chlorthalidone Oral CONTINUE TAKING THE FOLLOWING MEDICATIONS: Ambien Oral ASA Oral 81mg, daily Carvedilol Phosphate ER Oral Losartan Potassium Oral Trulicity Subcutaneous Xigdou The source(s) of the original Home Medication information: Not obtained. The following Medications were given to the patient in the Emergency Department: Aspirin [PO] PO 325 mg, administered: 02/18/2017 8:42:00 PM KCL [IVPB] IVPB bolus 0, then 20 meq 50 mL/hr, administered: 02/18/2017 9:20:00 PM KCL [PO] PO 20 meq, administered: 02/18/2017 9:20:00 PM GI Cocktail [PO] PO 60 mL, administered: 02/18/2017 11:27:00 PM PROTONIX 40MG [IVP] IVP 40 mg, administered: 02/18/2017 11:28:00 PM The following Medications were prescribed to the patient: Omeprazole 20 mg capsules: Take 1 orally once daily. Dispense fifteen (15). No refills. -- Aristides Campbell MD Potassium Chloride 10 mEq: Take 1 orally every 12 hours. Dispense thirty (30). No refills. -- Aristides Campbell MD
--- NOTE | 2017-02-22 11:07 | ED MAR SUMMARY ---
..... Medication Administration Record [facility] [address] [place] [address] Patient: ALFREDA ESTES Visit ID: [id number] 61y, M Weight: 100.6 kg Height/Length: 70.5 in BMI: 31.4 ALLERGIES: No Known Drug Allergy Given 20:42 02/18/2017 Sharyn Duke RAmara Medication Administered: ASPIRIN [PO], Dose: 325 mg PO. Medication Ordered: Aspirin PO 325 mg (NOW). Start 21:02/18/2017 Sharyn Duke R.N. Medication Administered: KCL [IVPB] (POTASSIUM CHLORIDE), Dose: 20 meq IVPB over 2 hour(s), Rate: 50 mL/hr, Dispensed: 100 mL bag, Site: #1 right AC. Medication Ordered: KCl IV 20 meq/100mL (NOW, Run no faster than 10 mEq/hr). Given 21:02/18/2017 Sharyn Duke R.N. Medication Administered: KCL [PO] (POTASSIUM CHLORIDE ER), Dose: 20 meq PO. Medication Ordered: KCl PO 20 meq (NOW). Given 23:27 02/18/2017 Yumi RElvaNElva Medication Administered: GI COCKTAIL [PO] (MAGNESIUM-ALUMINUM), Dose: 60 mL PO. Medication Ordered: GI Cocktail WHITE PO 30 mL with Lidocaine Viscous Mouth/Throat 15 mL, Maalox Plus Oral 15 mL. Given 23:28 02/18/2017 Yumi R.N. Medication Administered: PROTONIX 40MG [IVP] (PANTOPRAZOLE SODIUM), Dose: 40 mg IVP over 4 minute(s), Site: #1 right AC. Medication Ordered: Protonix IVP 40mg 40 mg (Mix in NS 10ml over 2min).
--- NOTE | 2017-02-22 11:07 | ED MED RECONCILIATION SUMMARY ---
Patient: ALFREDA ESTES Medication Reconciliation Report [facility] VisitID: [id number] [address] [place] [address] 61y, M Registration Date/Time: 02/18/2017 Weight: 100.6 kg Height/Length: 60 in. BMI: 31.4 ALLERGIES: No Known Drug Allergy The patient's Home Medications are listed below: STOP TAKING THE FOLLOWING MEDICATIONS: Chlorthalidone Oral CONTINUE TAKING THE FOLLOWING MEDICATIONS: Ambien Oral ASA Oral 81mg, daily Carvedilol Phosphate ER Oral Losartan Potassium Oral Trulicity Subcutaneous Xigdou The source(s) of the original Home Medication information: Not obtained. The following Medications were given to the patient in the Emergency Department: Aspirin [PO] PO 325 mg, administered: 02/18/2017 8:42:00 PM KCL [IVPB] IVPB bolus 0, then 20 meq 50 mL/hr, administered: 02/18/2017 9:20:00 PM KCL [PO] PO 20 meq, administered: 02/18/2017 9:20:00 PM GI Cocktail [PO] PO 60 mL, administered: 02/18/2017 11:27:00 PM PROTONIX 40MG [IVP] IVP 40 mg, administered: 02/18/2017 11:28:00 PM The following Medications were prescribed to the patient: Omeprazole 20 mg capsules: Take 1 orally once daily. Dispense fifteen (15). No refills. -- Aristides Campbell MD Potassium Chloride 10 mEq: Take 1 orally every 12 hours. Dispense thirty (30). No refills. -- Aristides Campbell MD
--- NOTE | 2017-02-22 11:07 | ED MAR SUMMARY ---
..... Medication Administration Record [facility] [address] [place] [address] Patient: ALFREDA ESTES Visit ID: [id number] 61y, M Weight: 100.6 kg Height/Length: 70.5 in BMI: 31.4 ALLERGIES: No Known Drug Allergy Given 20:42 02/18/2017 Sharyn Duke RAmara Medication Administered: ASPIRIN [PO], Dose: 325 mg PO. Medication Ordered: Aspirin PO 325 mg (NOW). Start 21:02/18/2017 Sharyn Duke R.N. Medication Administered: KCL [IVPB] (POTASSIUM CHLORIDE), Dose: 20 meq IVPB over 2 hour(s), Rate: 50 mL/hr, Dispensed: 100 mL bag, Site: #1 right AC. Medication Ordered: KCl IV 20 meq/100mL (NOW, Run no faster than 10 mEq/hr). Given 21:02/18/2017 Sharyn Duke R.N. Medication Administered: KCL [PO] (POTASSIUM CHLORIDE ER), Dose: 20 meq PO. Medication Ordered: KCl PO 20 meq (NOW). Given 23:27 02/18/2017 Yumi RElvaNElva Medication Administered: GI COCKTAIL [PO] (MAGNESIUM-ALUMINUM), Dose: 60 mL PO. Medication Ordered: GI Cocktail WHITE PO 30 mL with Lidocaine Viscous Mouth/Throat 15 mL, Maalox Plus Oral 15 mL. Given 23:28 02/18/2017 Yumi R.N. Medication Administered: PROTONIX 40MG [IVP] (PANTOPRAZOLE SODIUM), Dose: 40 mg IVP over 4 minute(s), Site: #1 right AC. Medication Ordered: Protonix IVP 40mg 40 mg (Mix in NS 10ml over 2min).
== END 2017-02-19 01:40 | disposition home or self-care (01) ==
LOC: ED SRH 20:12
DX: R07.89 Other chest pain (principal); E87.6 Hypokalemia; E11.9 Type 2 diabetes mellitus without complications; I10 Essential (primary) hypertension; Z79.82 Long term (current) use of aspirin; Z79.899 Other long term (current) drug therapy; Z87.891 Personal history of nicotine dependence
CPT/HCPCS: 90004; 90074; 90100; 90616; 91556; 92610; 92720; 94001; 94060; 95059